=== PATIENT | female | born 1980 | race Caucasian/White ===

== ENCOUNTER 2021-12-05 16:42 | Inpatient (IN) | payer OTHER ==
--- NOTE | 2021-12-05 17:40 | CT ---
EXAMINATION TYPE: CT brain wo con CT DLP: 1084.4 mGycm, Automated exposure control for dose reduction was used. DATE OF EXAM: 12/05/2021 5:13 PM COMPARISON: None. CLINICAL INDICATION:Female, 41 years old with history of Headache, eye doctor sent pt over for Vision issues and headache TECHNIQUE: Brain: Multiple axial CT images of the brain were obtained without IV contrast. FINDINGS: Brain: Extra-axial spaces: No abnormal extra-axial fluid collections. Ventricular system: Within normal limits Cerebral parenchyma: No acute intraparenchymal hemorrhage or mass effect. The florian-white junction is well differentiated. Cerebellum: Unremarkable. Mass effect: No evidence of midline shift. Intracranial vasculature: unremarkable Soft tissues: Normal. Calvarium/osseous structures: No depressed skull fracture. Paranasal sinuses and mastoid air cells: Mild scattered paranasal sinus disease. Visualized orbits: Orbital contents are intact. Extraconal and intraconal fat is within normal limits . IMPRESSION: 1. No acute intracranial process. 2. The orbits and globes appear within normal limits.
--- NOTE | 2021-12-05 21:30 | ED ---
Recheck HPI - General Chief Complaint: Recheck/Abnormal Lab/Rx Stated Complaint: High BP Time Seen by Provider: 12/05/21 21:23 Source: patient, RN notes reviewed, old records reviewed Mode of arrival: ambulatory Limitations: no limitations - History of Present Illness Initial Comments: This is a 41-year-old female to the ER for evaluation. Patient Dese for evaluation regards to severely elevated blood pressure. Concern for papillary edema. Patient is having blurry vision. No headaches. Patient has had elevated blood pressure in the past about 4 years ago was on medications but did stop taking medication. She denies any headache chest pain shortness of breath or abdominal pain. Currently she has had shortness of breath recently especially with exertion otherwise no complaints. Patient feels well no drug or alcohol abuse. MD Complaint: abnormal lab (Severely elevated blood pressure) -: unknown Returns Today for: other (Patient has had elevated blood pressure the past and medication) Symptoms Since Prior Visit: no new symptoms (Patient was having blurry vision which caused her to go to the [place]) Context: planned re-check Associated Symptoms: none Treatments Prior to Arrival: other medications - Related Data Home Medications Medication Instructions Recorded Confirmed No Known Home Medications 12/05/21 12/05/21 Allergies Allergy/AdvReac Type Severity Reaction Status Date / Time No Known Allergies Allergy Verified 12/05/21 21:31 Review of Systems ROS Statement: Those systems with pertinent positive or pertinent negative responses have been documented in the HPI. ROS Other: All systems not noted in ROS Statement are negative. Past Medical History Past Medical History: No Reported History History of Any Multi-Drug Resistant Organisms: None Reported Past Surgical History: Section, Uterine Ablation Additional Past Surgical History / Comment(s): lymph node removed Past Psychological History: No Psychological Hx Reported Smoking Status: Never smoker Past Alcohol Use History: None Reported Past Drug Use History: Unable to Obtain General Exam Limitations: no limitations General appearance: alert, in no apparent distress, anxious Head exam: Present: atraumatic, normocephalic, normal inspection Eye exam: Present: normal appearance, PERRL, EOMI. Absent: scleral icterus, conjunctival injection, periorbital swelling ENT exam: Present: normal exam, mucous membranes moist Neck exam: Present: normal inspection. Absent: tenderness, meningismus, lymphadenopathy Respiratory exam: Present: normal lung sounds bilaterally. Absent: respiratory distress, wheezes, rales, rhonchi, stridor Cardiovascular Exam: Present: normal rhythm, tachycardia, normal heart sounds. Absent: systolic murmur, diastolic murmur, rubs, gallop, clicks GI/Abdominal exam: Present: soft, normal bowel sounds. Absent: distended, tenderness, guarding, rebound, rigid Extremities exam: Present: normal inspection, full ROM, normal capillary refill. Absent: tenderness, pedal edema, joint swelling, calf tenderness Back exam: Present: normal inspection Neurological exam: Present: alert, oriented X3, CN II-XII intact Psychiatric exam: Present: normal affect, normal mood Skin exam: Present: warm, dry, intact, normal color. Absent: rash Course Vital Signs 12/05/21 12/05/21 12/05/21 16:52 21:10 22:06 Temperature 97.8 F Pulse Rate 116 H 107 H 85 Respiratory 20 18 18 Rate Blood Pressure 231/166 207/154 205/132 O2 Sat by Pulse 99 97 97 Oximetry 12/05/21 22:57 Temperature Pulse Rate 84 Respiratory 18 Rate Blood Pressure 186/119 O2 Sat by Pulse Oximetry - Reevaluation(s) Reevaluation #1: 12/05/21 22:08 Medical records reviewed Reevaluation #2: 12/05/21 23:03 Patient's blood pressure is mildly improving, slowly Reevaluation #3: 12/05/21 23:04 Patient informed results and questions answered - Consultations Consultation #1: spoke w [facility] who agree to admit this patient Medical Decision Making - Medical Decision Making 41 female found to have severely elevated blood pressure palpable edema, hypertensive emergency mild CHF. Patient will be admitted for cardiology evaluation management blood pressure control - Lab Data Result diagrams: 12/05/21 21:43 12/05/21 21:43 Lab Results 12/05/21 12/05/21 12/05/21 Range/Units 21:43 21:43 21:43 WBC 13.5 H (3.8-10.6) k/uL RBC 4.40 (3.80-5.40) m/uL Hgb 13.1 (11.4-16.0) gm/dL Hct 40.2 (34.0-46.0) % MCV 91.3 (80.0-100.0) fL MCH 29.7 (25.0-35.0) pg MCHC 32.5 (31.0-37.0) g/dL RDW 14.4 (11.5-15.5) % Plt Count 367 (150-450) k/uL MPV 8.7 Neutrophils % 72 % Lymphocytes % 23 % Monocytes % 3 % Eosinophils % 1 % Basophils % 1 % Neutrophils # 9.7 H (1.3-7.7) k/uL Lymphocytes # 3.1 (1.0-4.8) k/uL Monocytes # 0.4 (0-1.0) k/uL Eosinophils # 0.1 (0-0.7) k/uL Basophils # 0.1 (0-0.2) k/uL PT 10.3 (9.0-12.0) sec INR 0.9 (<1.2) APTT 23.6 (22.0-30.0) sec Sodium 136 L (137-145) mmol/L Potassium 3.9 (3.5-5.1) mmol/L Chloride 105 (98-107) mmol/L Carbon Dioxide 23 (22-30) mmol/L Anion Gap 8 mmol/L BUN 17 (7-17) mg/dL Creatinine 1.04 (0.52-1.04) mg/dL Est GFR (CKD-EPI)AfAm 79 (>60 ml/min/1.73 sqM) Est GFR (CKD-EPI)NonAf 68 (>60 ml/min/1.73 sqM) Glucose 116 H (74-99) mg/dL Calcium 8.8 (8.4-10.2) mg/dL Phosphorus 4.2 (2.5-4.5) mg/dL Magnesium 2.1 (1.6-2.3) mg/dL Total Bilirubin 0.7 (0.2-1.3) mg/dL AST 17 (14-36) U/L ALT 17 (4-34) U/L Alkaline Phosphatase 91 (38-126) U/L Troponin I (0.000-0.034) ng/mL NT-Pro-B Natriuret Pep pg/mL Total Protein 7.3 (6.3-8.2) g/dL Albumin 4.2 (3.5-5.0) g/dL 12/05/21 12/05/21 Range/Units 21:43 21:43 WBC (3.8-10.6) k/uL RBC (3.80-5.40) m/uL Hgb (11.4-16.0) gm/dL Hct (34.0-46.0) % MCV (80.0-100.0) fL MCH (25.0-35.0) pg MCHC (31.0-37.0) g/dL RDW (11.5-15.5) % Plt Count (150-450) k/uL MPV Neutrophils % % Lymphocytes % % Monocytes % % Eosinophils % % Basophils % % Neutrophils # (1.3-7.7) k/uL Lymphocytes # (1.0-4.8) k/uL Monocytes # (0-1.0) k/uL Eosinophils # (0-0.7) k/uL Basophils # (0-0.2) k/uL PT (9.0-12.0) sec INR (<1.2) APTT (22.0-30.0) sec Sodium (137-145) mmol/L Potassium (3.5-5.1) mmol/L Chloride (98-107) mmol/L Carbon Dioxide (22-30) mmol/L Anion Gap mmol/L BUN (7-17) mg/dL Creatinine (0.52-1.04) mg/dL Est GFR (CKD-EPI)AfAm (>60 ml/min/1.73 sqM) Est GFR (CKD-EPI)NonAf (>60 ml/min/1.73 sqM) Glucose (74-99) mg/dL Calcium (8.4-10.2) mg/dL Phosphorus (2.5-4.5) mg/dL Magnesium (1.6-2.3) mg/dL Total Bilirubin (0.2-1.3) mg/dL AST (14-36) U/L ALT (4-34) U/L Alkaline Phosphatase (38-126) U/L Troponin I 0.021 (0.000-0.034) ng/mL NT-Pro-B Natriuret Pep 4570 pg/mL Total Protein (6.3-8.2) g/dL Albumin (3.5-5.0) g/dL - EKG Data -: EKG Interpreted by Me (EKG sinus tachycardia 103 RI 128 QRS 95 QTC 428) - Radiology Data Radiology results: report reviewed (CT brain negative for acute disease chest x- ray positive for mild CHF), image reviewed Disposition Clinical Impression: Hypertensive emergency Disposition: ADMITTED IP TO THIS HOSP Condition: Serious Is patient prescribed a controlled substance at d/c from ED?: No Referrals: None,Stated [Primary Care Provider] - 1-2 days
[2021-12-05] MEDS ORDERED: LABETALOL 5 MG/ML VIAL MDV IVP STA ×2 (21:31→23:00)
[2021-12-05] MEDS ORDERED: SODIUM CHLORIDE 0.9% 1,000 ML IV STA (21:31)
[2021-12-05 22:15] LABS: Basophils # (A) 0.1 k/uL (0-0.2); Basophils % (A) 1 %; Eosinophils # (A) 0.1 k/uL (0-0.7); Eosinophils % (A) 1 %; HCT 40.2 % (34.0-46.0); HGB 13.1 gm/dL (11.4-16.0); Lymphocytes # (A) 3.1 k/uL (1.0-4.8); Lymphocytes % (A) 23 %; MCH 29.7 pg (25.0-35.0); MCHC 32.5 g/dL (31.0-37.0); MCV 91.3 fL (80.0-100.0); Mean Platelet Volume 8.7; Monocytes # (A) 0.4 k/uL (0-1.0); Monocytes % (A) 3 %; Neutrophils # (A) 9.7 k/uL (1.3-7.7); Neutrophils % (A) 72 %; Platelet Count 367 k/uL (150-450); RDW 14.4 % (11.5-15.5); WBC 13.5 k/uL (3.8-10.6)
[2021-12-05 22:20] LABS: INR 0.9 (<1.2); Partial Thromboplastin Time 23.6 sec (22.0-30.0); Prothrombin Time 10.3 sec (9.0-12.0)
[2021-12-05 22:43] LABS: Albumin 4.2 g/dL (3.5-5.0); Calcium 8.8 mg/dL (8.4-10.2); Magnesium 2.1 mg/dL (1.6-2.3); Phosphorus 4.2 mg/dL (2.5-4.5); Potassium 3.9 mmol/L (3.5-5.1); Total Bilirubin 0.7 mg/dL (0.2-1.3); Total Protein 7.3 g/dL (6.3-8.2)
[2021-12-05] MEDS ORDERED: NALOXONE 0.4 MG/ML 1 ML VIAL IV PRN (23:00)
[2021-12-05] MEDS ORDERED: LORazepam 2 MG/ML INJ IV PRN (23:00)
[2021-12-05] MEDS ORDERED: lisinopriL 10 MG TAB PO STA (23:02)
--- NOTE | 2021-12-05 23:10 | XR ---
EXAMINATION TYPE: XR chest 2V DATE OF EXAM: 12/05/2021 COMPARISON: NONE HISTORY: High blood pressure TECHNIQUE: 2 views FINDINGS: There is no heart failure nor confluent pneumonic infiltrate. Costophrenic angles are clear . There are no hilar masses. There are chest leads. Bony thorax is intact. Heart appears borderline e nlarged. IMPRESSION: No active cardiopulmonary disease. Borderline cardiomegaly.
[2021-12-05] MEDS: SODIUM CHLORIDE 0.9% 1,000 ML IV SCH (23:13)
[2021-12-06] MEDS ORDERED: hydrALAZINE HCL 20 MG/ML 1 ML VIAL IVP STA (01:24)
[2021-12-06] MEDS: ACETAMINOPHEN TAB 325 MG TAB PO PRN ×2 (03:46→17:34)
[2021-12-06 05:55] LABS: Basophils # (A) 0.1 k/uL (0-0.2); Basophils % (A) 1 %; Eosinophils % (A) 0 %; HCT 37.3 % (34.0-46.0); Lymphocytes # (A) 2.2 k/uL (1.0-4.8); Lymphocytes % (A) 17 %; MCH 29.6 pg (25.0-35.0); MCHC 32.3 g/dL (31.0-37.0); MCV 91.8 fL (80.0-100.0); Monocytes # (A) 0.4 k/uL (0-1.0); Monocytes % (A) 3 %; Neutrophils # (A) 10.3 k/uL (1.3-7.7); Neutrophils % (A) 78 %; Platelet Count 313 k/uL (150-450); RBC 4.06 m/uL (3.80-5.40); RDW 13.8 % (11.5-15.5); WBC 13.1 k/uL (3.8-10.6)
[2021-12-06 06:09] LABS: Albumin 3.4 g/dL (3.5-5.0); Calcium 8.5 mg/dL (8.4-10.2); Phosphorus 3.8 mg/dL (2.5-4.5); Potassium 3.9 mmol/L (3.5-5.1); Total Bilirubin 0.8 mg/dL (0.2-1.3); Total Protein 6.2 g/dL (6.3-8.2)
[2021-12-06] MEDS: lisinopriL 10 MG TAB PO SCH (08:06)
[2021-12-06] MEDS: METOPROLOL TARTRATE 50 MG TAB PO SCH ×2 (08:06→20:30)
[2021-12-06] MEDS: SODIUM CHLORIDE 0.9% 1,000 ML IV SCH ×2 (08:06→18:41)
[2021-12-06] MEDS ORDERED: RX INFO: IV CONTRAST WAS GIVEN 1 EACH MISC MISCELLANE PRN (11:11)
[2021-12-06] MEDS ORDERED: SODIUM CHLORIDE 0.9% 1,000 ML IV SCH (11:15)
--- NOTE | 2021-12-06 11:28 | P.CRDCN ---
History of Present Illness Consult date: 12/06/21 Chief complaint: Shortness of breath History of present illness: The patient is a pleasant 41-year-old female patient who did not see a physician in at least 3 years was diagnosed in the past with hypertension but unfortunately she stopped taking her medication. Beside that she does have mild obesity. She was referred to the emergency department by her supervisor parking lot. She had an appointment yesterday where her supervisor parking lot found out that her pressure was severely elevated and refer the patient to come to the hospital. Her blood pressure was more than 200 mmHg systolic. For the last week the patient has been experiencing increasing in the shortness of breath with exertion and she stated that she gained some weight and developed bilateral lower extremities edema. She reports no pain in the chest and no dizziness or lightheadedness or any feeling of heart racing or fluttering or presyncope or syncope. She had a full evaluation in the emergency department including a chest x-ray showed no acute abnormalities and EKG showing sinus rhythm with evidence of LVH and poor R-wave progression. Beside that her NT proBNP came in to be mildly elevated. When the patient was seen and evaluated she was in very mild heart failure with mild lower extremities edema more prominent on the left side than the right side but she has clear breathing sounds bilaterally and she has a regular rate and rhythm. Currently she is on lisinopril as well as metoprolol. She has not been taking any medication for high blood pressure at home. Beside that clearly the patient has not been watching her diet and she has not been exercising regularly. Past Medical History Past Medical History: No Reported History History of Any Multi-Drug Resistant Organisms: None Reported Past Surgical History: Section, Uterine Ablation Additional Past Surgical History / Comment(s): lymph node removed Past Psychological History: No Psychological Hx Reported Smoking Status: Never smoker Past Alcohol Use History: None Reported Past Drug Use History: Unable to Obtain Medications and Allergies Home Medications Medication Instructions Recorded Confirmed Type No Known Home Medications 12/05/21 12/05/21 History Allergies Allergy/AdvReac Type Severity Reaction Status Date / Time No Known Allergies Allergy Verified 12/05/21 21:31 Physical Exam Vitals: Vital Signs Temp Pulse Resp BP Pulse Ox 12/06/21 09:12 82 18 149/93 98 12/06/21 08:03 84 18 141/92 97 12/06/21 06:48 84 18 142/89 96 12/06/21 04:00 84 18 154/96 96 12/06/21 02:13 80 18 152/93 97 12/05/21 23:54 81 18 176/122 97 12/05/21 22:57 84 18 186/119 12/05/21 22:06 85 18 205/132 97 12/05/21 21:10 107 H 18 207/154 97 12/05/21 16:52 97.8 F 116 H 20 231/166 99 Intake and Output 12/05/21 12/06/21 12/06/21 22:59 06:59 14:59 Other: Weight 113.398 kg - Constitutional General appearance: no acute distress - Respiratory Respiratory: bilateral: diminished - Cardiovascular Rhythm: regular Heart sounds: normal: S1, S2 Results 12/06/21 04:56 12/06/21 04:56 Cardiac Enzymes 12/05/21 12/05/21 12/06/21 Range/Units 21:43 21:43 00:17 AST 17 (14-36) U/L Troponin I 0.021 0.016 (0.000-0.034) ng/mL 12/06/21 12/06/21 Range/Units 04:56 04:56 AST 14 (14-36) U/L Troponin I <0.012 (0.000-0.034) ng/mL Coagulation 12/05/21 Range/Units 21:43 PT 10.3 (9.0-12.0) sec APTT 23.6 (22.0-30.0) sec CBC 12/05/21 12/06/21 Range/Units 21:43 04:56 WBC 13.5 H 13.1 H (3.8-10.6) k/uL RBC 4.40 4.06 (3.80-5.40) m/uL Hgb 13.1 12.0 (11.4-16.0) gm/dL Hct 40.2 37.3 (34.0-46.0) % Plt Count 367 313 (150-450) k/uL Comprehensive Metabolic Panel 12/05/21 12/06/21 Range/Units 21:43 04:56 Sodium 136 L 137 (137-145) mmol/L Potassium 3.9 3.9 (3.5-5.1) mmol/L Chloride 105 107 (98-107) mmol/L Carbon Dioxide 23 21 L (22-30) mmol/L BUN 17 16 (7-17) mg/dL Creatinine 1.04 0.98 (0.52-1.04) mg/dL Glucose 116 H 109 H (74-99) mg/dL Calcium 8.8 8.5 (8.4-10.2) mg/dL AST 17 14 (14-36) U/L ALT 17 16 (4-34) U/L Alkaline Phosphatase 91 76 (38-126) U/L Total Protein 7.3 6.2 L (6.3-8.2) g/dL Albumin 4.2 3.4 L (3.5-5.0) g/dL Current Medications Generic Name Dose Route Start Last Admin Trade Name Freq PRN Reason Stop Dose Admin Acetaminophen 650 mg 12/05/21 23:00 12/06/21 03:46 Acetaminophen Tab 325 Mg Tab PO 650 mg Q6HR PRN Administration Mild Pain or Fever > 100.5 Sodium Chloride 1,000 mls @ 130 mls/hr 12/05/21 23:00 12/06/21 08:06 Saline 0.9% IV 130 mls/hr .[id number] ALLAN Administration Sodium Chloride 1,000 mls @ 75 mls/hr 12/06/21 11:15 Saline 0.9% IV 12/06/21 16:16 .[id number] ALLAN Lisinopril 10 mg 12/06/21 09:00 12/06/21 08:06 Lisinopril 10 Mg Tab PO 10 mg DAILY ALLAN Administration Lorazepam 0.5 mg 12/05/21 23:00 Lorazepam 2 Mg/Ml Inj IV Q6HR PRN Anxiety Metoprolol Tartrate 50 mg 12/06/21 09:00 12/06/21 08:06 Metoprolol Tartrate 50 Mg Tab PO 50 mg BID ALLAN Administration Miscellaneous Information 1 each 12/06/21 11:11 Rx Info: Iv Contrast Was Given 1 Each Misc MISCELLANE 12/08/21 11:11 DAILY PRN Per Protocol Morphine Sulfate 4 mg 12/05/21 23:00 Morphine Sulfate 4 Mg/Ml Syringe IV Q4HR PRN Severe Pain Naloxone HCl 0.2 mg 12/05/21 23:00 Naloxone 0.4 Mg/Ml 1 Ml Vial IV Q2M PRN Opioid Reversal Ondansetron HCl 4 mg 12/05/21 23:00 Ondansetron 4 Mg/2 Ml Vial IVP Q8HR PRN Nausea And Vomiting Intake and Output 12/05/21 12/06/21 12/06/21 22:59 06:59 14:59 Other: Weight 113.398 kg 12/06/21 04:56 12/06/21 04:56 Assessment and Plan Assessment: Assessment #1 hypertension emergency #2 mild heart failure of unknown etiology likely related to hypertension emergency #3 overweight #4 noncompliance Plan #1 continue the current medical regimen including the current dose of metoprolol as well as lisinopril #2 add diuretics and preferably thiazide diuretics with chlorthalidone #3 follow-up on the echocardiogram #4 the importance of low sodium diet and exercise was discussed with her #5 follow-up with the patient
[2021-12-06] MEDS: NITROGLYCERIN-D5W PMX 50 MG in DEXTROSE/WATER 1 250ML.BAG IV SCH (12:48)
[2021-12-06 14:00] LABS: Glucose,Whole Blood 127 mg/dL (75-99)
--- NOTE | 2021-12-06 14:59 | CA ---
Transthoracic Echo Report Name: Stefany Mahajan Age: 41 Gender: F : 1980 Exam Date: 12/06/2021 07:13 Exam Location: [facility] Ht (in): 66 Wt (lb): 250 Ordering Physician: James Elizalde DO Attending/Referring Phys: [id number], Tonio Day Care Director Salma Fenton, FOZIA Procedure CPT: Indications: chf Cardiac Hx: Family Hx , HTN Technical Quality: Fair Contrast 1: Total Dose (mL): Contrast 2: Total Dose (mL): MEASUREMENTS (Male / Female) Normal Values 2D ECHO LV Diastolic Diameter PLAX 4.1 cm 4.2 - 5.9 / 3.9 - 5.3 cm LV Systolic Diameter PLAX 3.6 cm IVS Diastolic Thickness 1.6 cm 0.6 - 1.0 / 0.6 - 0.9 cm LVPW Diastolic Thickness 1.5 cm 0.6 - 1.0 / 0.6 - 0.9 cm LV Relative Wall Thickness 0.8 RV Internal Dim ED PLAX 2.9 cm LA Systolic Diameter LX 3.6 cm 3.0 - 4.0 / 2.7 - 3.8 cm M-MODE Aortic Root Diameter MM 3.1 cm MV E Point Septal Separation 0.9 cm AV Cusp Separation MM 2.0 cm DOPPLER AV Peak Velocity 170.8 cm/s AV Peak Gradient 11.7 mmHg MV Area PHT 4.3 cm??? Mitral E Point Velocity 132.4 cm/s Mitral A Point Velocity 66.8 cm/s Mitral E to A Ratio 2.0 MV Deceleration Time 175.4 ms MV E' Velocity 8.0 cm/s Mitral E to MV E' Ratio 16.6 TR Peak Velocity 266.3 cm/s TR Peak Gradient 28.4 mmHg Right Ventricular Systolic Press 42.7 mmHg FINDINGS Left Ventricle Left ventricular ejection fraction is estimated at 60-65 %. Left ventricular cavity size normal moderate concentric left ventricular hypertrophy. Right Ventricle Mildly dilated right ventricle with a normal function. Mild pulmonary hypertension. Right Atrium Normal right atrial size. Left Atrium Mildly increased left atrial area. Mitral Valve Mitral annular calcification. Mild to moderate mitral regurgitation. Aortic Valve Focal thickening of the aortic valve cusps. Tricuspid Valve Mild to moderate tricuspid regurgitation. Pulmonic Valve Trace pulmonic regurgitation. Pericardium Normal pericardium. Aorta Normal size aortic root and proximal ascending aorta. CONCLUSIONS Normal left ventricular dimension and systolic function. Moderate concentric LVH. Mildly dilated right ventricle with a normal function. [id number] mitral regurgitation Mild pulmonary hypertension Mild to moderate tricuspid regurgitation Previewed by: Dr. Christian Bates MD (Electronically Signed) Final Date: 06 Dec 2021 14:58
--- NOTE | 2021-12-06 17:12 | P.HPIM ---
History of Present Illness H&P Date: 12/06/21 Chief Complaint: High pressure 41-year-old female patient who did not see a physician in at least 3 years was diagnosed in the past with hypertension but unfortunately she stopped taking her medication. Beside that she does have mild obesity. She was referred to the emergency department by her trace evidence technician. She had an appointment yesterday where her trace evidence technician found out that her pressure was severely elevated and refer the patient to come to the hospital. Her blood pressure was more than 200 mmHg systolic. For the last week the patient has been experiencing increasing in the shortness of breath with exertion and she stated that she gained some weight and developed bilateral lower extremities edema. She reports no pain in the chest and no dizziness or lightheadedness or any feeling of heart racing or fluttering or presyncope or syncope. Blood work completed in ED reveals WBC of 13.1, hemoglobin of 12 and platelet count of 313, sodium 137, potassium 3.9, BUN/creatinine of 16/0.98 and blood glucose of 109; troponin of less than 0.021; BNP of 4570 Review of Systems REVIEW OF SYSTEMS: CONSTITUTIONAL: No fever, no malaise, no fatigue. HEENT: No recent visual problems or hearing problems. Denied any sore throat. CARDIOVASCULAR: No chest pain, orthopnea, PND, no palpitations, no syncope. PULMONARY: No shortness of breath, no cough, no hemoptysis. GASTROINTESTINAL: No diarrhea, no nausea, no vomiting, no abdominal pain. NEUROLOGICAL: No headaches, no weakness, no numbness. HEMATOLOGICAL: Denies any bleeding or petechiae. GENITOURINARY: Denies any burning micturition, frequency, or urgency. MUSCULOSKELETAL/RHEUMATOLOGICAL: Denies any joint pain, swelling, or any muscle pain. ENDOCRINE: Denies any polyuria or polydipsia. The rest of the 14-point review of systems is negative. Past Medical History Past Medical History: No Reported History History of Any Multi-Drug Resistant Organisms: None Reported Past Surgical History: Section, Uterine Ablation Additional Past Surgical History / Comment(s): lymph node removed Past Psychological History: No Psychological Hx Reported Smoking Status: Never smoker Past Alcohol Use History: None Reported Past Drug Use History: Unable to Obtain - Past Family History Father Family Medical History: Hypertension Mother Additional Family Medical History / Comment(s): Heart failure. Medications and Allergies Home Medications Medication Instructions Recorded Confirmed Type No Known Home Medications 12/05/21 12/05/21 History Allergies Allergy/AdvReac Type Severity Reaction Status Date / Time No Known Allergies Allergy Verified 12/05/21 21:31 Physical Exam Vitals: Vital Signs Temp Pulse Resp BP Pulse Ox 12/06/21 09:12 82 18 149/93 98 12/06/21 08:03 84 18 141/92 97 12/06/21 06:48 84 18 142/89 96 12/06/21 04:00 84 18 154/96 96 12/06/21 02:13 80 18 152/93 97 12/05/21 23:54 81 18 176/122 97 12/05/21 22:57 84 18 186/119 12/05/21 22:06 85 18 205/132 97 12/05/21 21:10 107 H 18 207/154 97 12/05/21 16:52 97.8 F 116 H 20 231/166 99 Intake and Output 12/05/21 12/06/21 12/06/21 22:59 06:59 14:59 Other: Weight 113.398 kg PHYSICAL EXAMINATION: GENERAL: The patient is alert and oriented x3, not in any acute distress. Well developed, well nourished. HEENT: Pupils are round and equally reacting to light. EOMI. No scleral icterus. No conjunctival pallor. Normocephalic, atraumatic. No pharyngeal erythema. No thyromegaly. CARDIOVASCULAR: S1 and S2 present. No murmurs, rubs, or gallops. PULMONARY: Chest is clear to auscultation, no wheezing or crackles. ABDOMEN: Soft, nontender, nondistended, normoactive bowel sounds. No palpable organomegaly. MUSCULOSKELETAL: No joint swelling or deformity. EXTREMITIES: No cyanosis, clubbing, or pedal edema. NEUROLOGICAL: Gross neurological examination did not reveal any focal deficits. SKIN: No rashes. Results CBC & Chem 7: 12/06/21 04:56 12/06/21 04:56 Labs: Abnormal Lab Results - Last 24 Hours (Table) 12/05/21 12/05/21 12/06/21 Range/Units 21:43 21:43 04:56 WBC 13.5 H 13.1 H (3.8-10.6) k/uL Neutrophils # 9.7 H 10.3 H (1.3-7.7) k/uL Sodium 136 L (137-145) mmol/L Carbon Dioxide (22-30) mmol/L Glucose 116 H (74-99) mg/dL Total Protein (6.3-8.2) g/dL Albumin (3.5-5.0) g/dL /02/20 Range/Units 04:56 WBC (3.8-10.6) k/uL Neutrophils # (1.3-7.7) k/uL Sodium (137-145) mmol/L Carbon Dioxide 21 L (22-30) mmol/L Glucose 109 H (74-99) mg/dL Total Protein 6.2 L (6.3-8.2) g/dL Albumin 3.4 L (3.5-5.0) g/dL Assessment and Plan Assessment: 1. Hypertensive emergency - Patient has been admitted to ICU; has been placed on IV nitroglycerin infusion with plans to titrate for improved blood pressure control - Patient has been placed back on home antihypertensive therapy including metoprolol and lisinopril - Cardiology recommending to add thiazide diuretics with chlorthalidone 2. Mild CHF; likely related to hypertensive emergency - 2-D echo is ordered and pending; patient is to be placed on thiazide diuretics with chlorthalidone; continue with home dose of lisinopril; further recommendations after echocardiogram is completed 3. Leukocytosis; likely stress related; no signs of infection; we will monitor CBC and further recommendations accordingly 4. Overweight; counseling done on need for weight reduction DVT prophylaxis; SCDs CODE STATUS; full code
[2021-12-06] MEDS: MORPHINE SULFATE 4 MG/ML SYRINGE IV PRN (18:40)
[2021-12-06] MEDS: ONDANSETRON 4 MG/2 ML VIAL IVP PRN (18:40)
[2021-12-07] MEDS: SODIUM CHLORIDE 0.9% 1,000 ML IV SCH ×3 (00:15→13:54)
[2021-12-07] MEDS: ACETAMINOPHEN TAB 325 MG TAB PO PRN ×3 (04:10→13:36)
[2021-12-07] MEDS: MORPHINE SULFATE 4 MG/ML SYRINGE IV PRN ×4 (05:11→20:09)
[2021-12-07 06:55] LABS: Basophils # (A) 0.1 k/uL (0-0.2); Basophils % (A) 0 %; Eosinophils # (A) 0.1 k/uL (0-0.7); Eosinophils % (A) 1 %; HGB 11.6 gm/dL (11.4-16.0); Lymphocytes # (A) 1.5 k/uL (1.0-4.8); Lymphocytes % (A) 9 %; MCH 29.5 pg (25.0-35.0); MCHC 31.4 g/dL (31.0-37.0); MCV 93.9 fL (80.0-100.0); Monocytes # (A) 0.6 k/uL (0-1.0); Monocytes % (A) 4 %; Neutrophils # (A) 13.1 k/uL (1.3-7.7); Neutrophils % (A) 85 %; Platelet Count 284 k/uL (150-450); RBC 3.93 m/uL (3.80-5.40); RDW 13.9 % (11.5-15.5); WBC 15.5 k/uL (3.8-10.6)
[2021-12-07 07:04] LABS: Calcium 7.9 mg/dL (8.4-10.2); Potassium 4.1 mmol/L (3.5-5.1)
[2021-12-07] MEDS: CHLORTHALIDONE 25 MG TAB PO SCH ×2 (07:47→07:49)
[2021-12-07] MEDS: lisinopriL 10 MG TAB PO SCH (07:48)
[2021-12-07] MEDS: METOPROLOL TARTRATE 50 MG TAB PO SCH ×2 (07:49→20:09)
--- NOTE | 2021-12-07 07:52 | P.PN ---
Subjective Progress Note Date: 12/07/21 Principal diagnosis: hypertension emergency The patient is a 41-year-old female patient who was admitted to the hospital was hypertension emergency. She was referred from her leading firefighter to the emergency department with elevated blood pressure exceeding 200 mmHg systolic as sociated with lower extremities edema and increasing in the shortness of breath. She is known to have hypertension but she has not been taking any medication for the last several years and never seen a physician for the last several years. She was seen this morning. She is in the intensive care unit. Currently she is on nitro drip. On examination she continues to be hypervolemic with bilateral lower extremities swelling and also upper extremity swelling. No symptoms of chest pain or chest discomfort. Currently she is on nitro drip which I'm going to wean her down from it. Meanwhile I'm going to increase the dose of lisinopril and also start the patient on amlodipine in addition to the current medical regimen. She underwent an echo which revealed normal LV function was mild to moderate mitral and tricuspid regurgitation and evidence of hypertensive heart disease with at least moderate left ventricular hypertrophy. Objective - Vital Signs Vital signs: Vital Signs Temp 98.3 F 12/07/21 04:00 Pulse 76 12/07/21 07:00 Resp 21 12/07/21 07:00 BP 151/96 12/07/21 07:00 Pulse Ox 94 L 12/07/21 07:00 Intake & Output 12/06/21 12/07/21 12/07/21 18:59 06:59 18:59 Intake Total 474.716 2671.90 130 Output Total 200 300 Balance 399.222 7756.90 130 Weight 127.9 kg Intake: IV 465 1560 130 0.9 465 1560 130 Intake, IV Titration 7.425 141.90 Amount Nitroglycerin-D5w Pmx 50 7.425 141.90 mg In Dextrose/Water 1 250ml.bag @ 5 MCG/MIN 1.5 mls/hr IV .Q24H [facility] Rx#: [id number] Output: Urine 200 300 Other: Voiding Method Toilet Toilet # Voids 1 1 - Constitutional General appearance: Present: no acute distress - Respiratory Respiratory: bilateral: diminished - Cardiovascular Rhythm: regular Heart sounds: normal: S1, S2 - Labs CBC & Chem 7: 12/07/21 06:33 05/08/22 06:33 Labs: Abnormal Lab Results - Last 24 Hours (Table) 12/06/21 12/07/21 12/07/21 Range/Units 13:57 06:33 06:33 WBC 15.5 H (3.8-10.6) k/uL Neutrophils # 13.1 H (1.3-7.7) k/uL Chloride 112 H (98-107) mmol/L Carbon Dioxide 19 L (22-30) mmol/L Creatinine 1.06 H (0.52-1.04) mg/dL Glucose 122 H (74-99) mg/dL POC Glucose (mg/dL) 127 H (75-99) mg/dL Calcium 7.9 L (8.4-10.2) mg/dL Assessment and Plan Assessment: Assessment #1 hypertension emergency #2 mild heart failure of unknown etiology likely related to hypertension emergency #3 overweight #4 noncompliance Plan #1 increase the dose of lisinopril #2 add amlodipine to the current medical regimen #3 continue the current medical regimen including chlorthalidone #4 monitor the kidney function and electrolytes #5 the echo was reviewed and described above #6 the right wean the patient from Nitrol drip
[2021-12-07] MEDS ORDERED: lisinopriL 10 MG TAB PO ONE (09:00)
[2021-12-07] MEDS ORDERED: amLODIPine 5 MG TAB PO SCH (09:00)
--- NOTE | 2021-12-07 15:45 | P.PN ---
Subjective Progress Note Date: 12/07/21 Principal diagnosis: Hypertensive emergency Mild CHF 41-year-old female patient who did not see a physician in at least 3 years was diagnosed in the past with hypertension but unfortunately she stopped taking her medication. Beside that she does have mild obesity. She was referred to the emergency department by her traffic workforce representative. She had an appointment yesterday where her traffic workforce representative found out that her pressure was severely elevated and refer the patient to come to the hospital. Her blood pressure was more than 200 mmHg systolic. For the last week the patient has been experiencing increasing in the shortness of breath with exertion and she stated that she gained some weight and developed bilateral lower extremities edema. She reports no pain in the chest and no dizziness or lightheadedness or any feeling of heart racing or fluttering or presyncope or syncope. Blood work completed in ED reveals WBC of 13.1, hemoglobin of 12 and platelet count of 313, sodium 137, potassium 3.9, BUN/creatinine of 16/0.98 and blood glucose of 109; troponin of less than 0.021; BNP of 4570 12/07/2021 Patient is seen and evaluated in room at bedside sitting up in bedside chair; remains in ICU; remains on IV nitroglycerin infusion Patient has been evaluated by cardiology and is recommended to be weaned off nitroglycerin infusion; plan is to increase dose of lisinopril; amlodipine is added to current medical regimen Echocardiogram is completed and reveals normal LV function with mild to moderate mitral and tricuspid regurgitation and moderate LVH; continue the current medical regimen including chlorthalidone; monitor the kidney function and electrolytes Objective - Vital Signs Vital signs: Vital Signs Temp 98.1 F 12/07/21 08:00 Pulse 73 12/07/21 11:00 Resp 24 12/07/21 11:00 BP 140/93 12/07/21 11:00 Pulse Ox 95 12/07/21 11:00 Intake & Output 12/06/21 12/07/21 12/07/21 18:59 06:59 18:59 Intake Total 863.440 4107.90 1328.05 Output Total 200 300 250 Balance 101.840 7588.90 1078.05 Weight 127.9 kg Intake: IV 465 1560 780 0.9 465 1560 780 Intake, IV Titration 7.425 141.90 48.05 Amount Nitroglycerin-D5w Pmx 50 7.425 141.90 48.05 mg In Dextrose/Water 1 250ml.bag @ 5 MCG/MIN 1.5 mls/hr IV .Q24H [facility] Rx#: [id number] Oral 500 Output: Urine 200 300 250 Other: Voiding Method Toilet Toilet Toilet # Voids 1 1 - Labs CBC & Chem 7: 12/07/21 06:33 12/07/21 06:33 Labs: Abnormal Lab Results - Last 24 Hours (Table) 12/06/21 12/07/21 12/07/21 Range/Units 13:57 06:33 06:33 WBC 15.5 H (3.8-10.6) k/uL Neutrophils # 13.1 H (1.3-7.7) k/uL Chloride 112 H (98-107) mmol/L Carbon Dioxide 19 L (22-30) mmol/L Creatinine 1.06 H (0.52-1.04) mg/dL Glucose 122 H (74-99) mg/dL POC Glucose (mg/dL) 127 H (75-99) mg/dL Calcium 7.9 L (8.4-10.2) mg/dL Assessment and Plan Assessment: 1. Hypertensive emergency - Patient has been admitted to ICU; has been placed on IV nitroglycerin infusion with plans to titrate for improved blood pressure control - Patient has been placed back on home antihypertensive therapy including metoprolol and lisinopril - Cardiology recommending to add thiazide diuretics with chlorthalidone 2. Mild CHF; likely related to hypertensive emergency - 2-D echo is ordered and pending; patient is to be placed on thiazide diuretics with chlorthalidone; continue with home dose of lisinopril; further recommendations after echocardiogram is completed 3. Leukocytosis; likely stress related; no signs of infection; we will monitor CBC and further recommendations accordingly 4. Overweight; counseling done on need for weight reduction DVT prophylaxis; SCDs CODE STATUS; full code
[2021-12-07] MEDS: ONDANSETRON 4 MG/2 ML VIAL IVP PRN (16:00)
[2021-12-07] MEDS: NITROGLYCERIN-D5W PMX 50 MG in DEXTROSE/WATER 1 250ML.BAG IV SCH (20:05)
[2021-12-07] MEDS: SPIRONOLACTONE 25 MG TAB PO SCH (21:22)
[2021-12-07] MEDS: hydrALAZINE HCL 20 MG/ML 1 ML VIAL IVP PRN (21:23)
[2021-12-08] MEDS: hydrALAZINE HCL 20 MG/ML 1 ML VIAL IVP PRN ×2 (05:40→15:44)
[2021-12-08] MEDS: ACETAMINOPHEN TAB 325 MG TAB PO PRN ×2 (06:38→12:14)
--- NOTE | 2021-12-08 07:06 | P.PN ---
Subjective Progress Note Date: 12/08/21 PROGRESS NOTE The patient is a 41-year-old female with prior diagnosis of hypertension who presented with uncontrolled hypertension. She was not taking any medication on presentation. She had no evidence of organ acute damage. She is complaining of generalized achiness but no chest discomfort or significant dyspnea. She denies any dizziness or palpitations. She is in sinus mechanism. She is off the IV nitroglycerin. She had a headache that resolved. She has no nausea or vomiting. She continues to be on Norvasc 5 mg daily, chlorthalidone 25 mg daily, lisinopril 20 mg daily, Toprol-XL tartrate 50 mg twice a day. She is on hydralazine on a when necessary basis. PHYSICAL EXAMINATION: Blood pressure 150/80 heart rate 90 LUNGS: [Clear to auscultation] HEART: [Regular rate and rhythm, S1, S2. No S3. Systolic ejection murmur, 2/6. Plus S4] ABDOMEN: [Soft, nontender, no organomegaly] EXTREMETIES: [+1 edema] LAB: Potassium 4.1, BUN 16, creatinine 1.06. Echocardiogram showed a normal systolic function was mild to moderate mitral and tricuspid regurgitation IMPRESSION: 1. Uncontrolled hypertension, not treated in the past. 2. Peripheral edema, improving 3. Noncompliance PLAN: 1. Increase activity leve 2. Transfer to telemetry floor 3. Increase amlodipine and lisinopril 4. Follow renal functions 5. If stable probable discharge in 24-48 hours. Objective - Vital Signs Vital signs: Vital Signs Temp 97.8 F 12/08/21 04:00 Pulse 96 12/08/21 06:00 Resp 24 12/08/21 06:00 BP 177/106 12/08/21 06:00 Pulse Ox 97 12/08/21 06:00 Intake & Output 12/07/21 12/08/21 12/08/21 18:59 06:59 18:59 Intake Total 2285.525 359.700 Output Total 700 2300 Balance 1585.525 -1940.300 Weight 127.5 kg Intake: IV 960 80 0.9 960 80 Intake, IV Titration 75.525 79.700 Amount Nitroglycerin-D5w Pmx 50 75.525 79.700 mg In Dextrose/Water 1 250ml.bag @ 5 MCG/MIN 1.5 mls/hr IV .Q24H [facility] Rx#: [id number] Oral 1250 200 Output: Urine 700 2300 Other: Voiding Method Toilet Toilet - Labs CBC & Chem 7: 12/07/21 06:33 12/07/21 06:33 Labs: Abnormal Lab Results - Last 24 Hours (Table) 12/07/21 Range/Units 06:33 Chloride 112 H (98-107) mmol/L Carbon Dioxide 19 L (22-30) mmol/L Creatinine 1.06 H (0.52-1.04) mg/dL Glucose 122 H (74-99) mg/dL Calcium 7.9 L (8.4-10.2) mg/dL
[2021-12-08] MEDS ORDERED: lisinopriL 20 MG TAB PO SCH (09:00)
[2021-12-08] MEDS: lisinopriL 20 MG TAB PO SCH ×2 (09:13→20:25)
[2021-12-08] MEDS: SPIRONOLACTONE 25 MG TAB PO SCH (09:13)
[2021-12-08] MEDS: METOPROLOL TARTRATE 50 MG TAB PO SCH ×2 (09:13→20:24)
[2021-12-08] MEDS: amLODIPine 5 MG TAB PO SCH ×2 (09:13→20:25)
--- NOTE | 2021-12-08 16:15 | P.PN ---
Subjective From records 41-year-old female patient who did not see a physician in at least 3 years was diagnosed in the past with hypertension but unfortunately she stopped taking her medication. Beside that she does have mild obesity. She was referred to the emergency department by her truck spotter. She had an appointment yesterday where her truck spotter found out that her pressure was severely elevated and refer the patient to come to the hospital. Her blood pressure was more than 200 mmHg systolic. For the last week the patient has been experiencing increasing in the shortness of breath with exertion and she stated that she gained some we ight and developed bilateral lower extremities edema. She reports no pain in the chest and no dizziness or lightheadedness or any feeling of heart racing or fluttering or presyncope or syncope. Blood work completed in ED reveals WBC of 13.1, hemoglobin of 12 and platelet count of 313, sodium 137, potassium 3.9, BUN/creatinine of 16/0.98 and blood glucose of 109; troponin of less than 0.021; BNP of 4570 12/07/2021 Patient is seen and evaluated in room at bedside sitting up in bedside chair; remains in ICU; remains on IV nitroglycerin infusion Patient has been evaluated by cardiology and is recommended to be weaned off nitroglycerin infusion; plan is to increase dose of lisinopril; amlodipine is added to current medical regimen Echocardiogram is completed and reveals normal LV function with mild to moderate mitral and tricuspid regurgitation and moderate LVH; continue the current medical regimen including chlorthalidone; monitor the kidney function and electrolytes Subjective 12/08/2021, resume the care of the patient today Patient is seen and examined today in the ICU. She is a pleasant 41 years old female who was sent from her PCP office for uncontrolled blood pressure. She is currently on several blood pressure medication and increase the dose of Norvasc 5 mg twice a day and lisinopril 20 mg twice a day increased today. And continued with the same medication of chlorthalidone 25 mg, metoprolol 50 mg and Aldactone 25 mg. Cardiology following the case closely. TSH normal. EF 60- 65%. Chest x-rays negative for acute process. WBC 15.5, creatinine 1.0. Patient can be transferred out of the ICU was cleared by cardiology Objective - Vital Signs Vital signs: Vital Signs Temp 98.0 F 12/08/21 08:00 Pulse 85 12/08/21 12:30 Resp 15 05/09/22 12:30 BP 162/106 12/08/21 12:00 Pulse Ox 96 12/08/21 12:30 Intake & Output 12/07/21 12/08/21 12/08/21 18:59 06:59 18:59 Intake Total 2285.525 359.700 500 Output Total 700 2300 1150 Balance 1585.525 -1940.300 -650 Weight 127.5 kg Intake: IV 960 80 0.9 960 80 Intake, IV Titration 75.525 79.700 Amount Nitroglycerin-D5w Pmx 50 75.525 79.700 mg In Dextrose/Water 1 250ml.bag @ 5 MCG/MIN 1.5 mls/hr IV .Q24H [facility] Rx#: [id number] Oral 1250 200 500 Output: Urine 700 2300 1150 Other: Voiding Method Toilet Toilet Toilet - Exam - GENERAL: The patient is alert and oriented x3, not in any acute distress. Morbidly obese HEENT: Pupils are round and equally reacting to light. EOMI. No scleral icterus. No conjunctival pallor. Normocephalic, atraumatic. No pharyngeal erythema. No thyromegaly. CARDIOVASCULAR: S1 and S2 present. No murmurs, rubs, or gallops. PULMONARY: Chest is clear to auscultation, no wheezing or crackles. ABDOMEN: Soft, nontender, nondistended, normoactive bowel sounds. No palpable organomegaly. MUSCULOSKELETAL: No joint swelling or deformity. EXTREMITIES: No cyanosis, clubbing, or pedal edema. NEUROLOGICAL: Gross neurological examination did not reveal any focal deficits. SKIN: No rashes. no petechiae. - Labs CBC & Chem 7: 12/07/21 06:33 12/07/21 06:33 Assessment and Plan Assessment: Hypertensive urgency, present on admission. Mild to moderate tricuspid regurgitation Leukocytosis, could be reactive. No source of infection. Probably mild degree of chronic kidney injury, possible chronic kidney disease stage II secondary to hypertensive nephropathy. Morbid obesity with BMI 45.4. Plan: This is a pleasant 61 years old female presents with uncontrolled hypertension and other medical problems. Continue with blood pressure medication, Norvasc, chlorthalidone, lisinopril, metoprolol and Aldactone. Cardiology team on the case. Monitor blood pressure closely. Preoperative creatinine and blood cells. Labs and medication were reviewed.. Continue same treatment. Continue with symptomatic treatment. Resume home medication. Monitor lytes and vitals. DVT and GI prophylaxis. Further recommendationsas per clinical course of the patient DVT prophylaxis: Subcutaneous heparin GI Prophylaxis: Pepcid Prognosis is guarded
[2021-12-08 16:27] LABS: Basophils # (A) 0.1 k/uL (0-0.2); Basophils % (A) 0 %; Eosinophils # (A) 0.3 k/uL (0-0.7); Eosinophils % (A) 2 %; HCT 42.4 % (34.0-46.0); HGB 13.7 gm/dL (11.4-16.0); Lymphocytes # (A) 2.6 k/uL (1.0-4.8); Lymphocytes % (A) 14 %; MCH 29.8 pg (25.0-35.0); MCHC 32.3 g/dL (31.0-37.0); MCV 92.5 fL (80.0-100.0); Monocytes # (A) 0.6 k/uL (0-1.0); Monocytes % (A) 3 %; Neutrophils # (A) 14.9 k/uL (1.3-7.7); Neutrophils % (A) 80 %; Platelet Count 420 k/uL (150-450); RBC 4.58 m/uL (3.80-5.40); RDW 14.5 % (11.5-15.5); WBC 18.7 k/uL (3.8-10.6)
[2021-12-08 16:37] LABS: African American GFR (CKD) >90 (>60 ml/min/1.73 sqM); Anion Gap 10 mmol/L; Blood Urea Nitrogen 12 mg/dL (7-17); Calcium 9.1 mg/dL (8.4-10.2); Carbon Dioxide 23 mmol/L (22-30); Chloride 106 mmol/L (98-107); Glucose 112 mg/dL (74-99); Non-African American GFR(CKD) 81 (>60 ml/min/1.73 sqM); Potassium 4.2 mmol/L (3.5-5.1); Sodium 139 mmol/L (137-145)
[2021-12-08 16:57] LABS: HCG,Qualitative Serum Not Detected
[2021-12-08 19:58] LABS: Appearance,Urine Clear (Clear); Bilirubin,Urine Negative (Negative); Blood,Urine Negative (Negative); Color,Urine Light Yellow; Glucose,Urine (UA) Negative (Negative); Ketones,Urine 1+ (Negative); Leukocyte Esterase,Urine Negative (Negative); Nitrite,Urine Negative (Negative); Protein,Urine Negative (Negative); Specific Gravity,Urine 1.009 (1.001-1.035); Urobilinogen,Urine <2.0 mg/dL (<2.0)
[2021-12-08] MEDS: HEPARIN SODIUM,PORCINE/PF 5,000 UNIT/0.5 ML SYRINGE SQ SCH (20:25)
[2021-12-08] MEDS: FAMOTIDINE 20 MG/2 ML VIAL IV SCH (20:25)
[2021-12-09] MEDS: hydrALAZINE HCL 20 MG/ML 1 ML VIAL IVP PRN (06:31)
[2021-12-09] MEDS: HEPARIN SODIUM,PORCINE/PF 5,000 UNIT/0.5 ML SYRINGE SQ SCH ×2 (08:37→20:07)
[2021-12-09] MEDS: CHLORTHALIDONE 25 MG TAB PO SCH (08:37)
[2021-12-09] MEDS: lisinopriL 20 MG TAB PO SCH ×2 (08:37→20:07)
[2021-12-09] MEDS: FAMOTIDINE 20 MG/2 ML VIAL IV SCH (08:37)
[2021-12-09] MEDS: SPIRONOLACTONE 25 MG TAB PO SCH (08:37)
[2021-12-09] MEDS: amLODIPine 5 MG TAB PO SCH ×2 (08:37→20:07)
[2021-12-09 08:46] VITALS: RESP 18
[2021-12-09 08:55] LABS: Calcium 8.8 mg/dL (8.4-10.2); Potassium 3.8 mmol/L (3.5-5.1)
--- NOTE | 2021-12-09 09:05 | P.PN ---
Subjective Progress Note Date: 12/09/21 PROGRESS NOTE The patient is a 41-year-old female with prior diagnosis of hypertension who presented with uncontrolled hypertension. She was not taking any medication on presentation. She had no evidence of organ acute damage. She is complaining of generalized achiness but no chest discomfort or significant dyspnea. She denies any dizziness or palpitations. She is in sinus mechanism. She is off the IV nitroglycerin. She had a headache that resolved. She has no nausea or vomiting. She continues to be on Norvasc 5 mg daily, chlorthalidone 25 mg daily, lisinopril 20 mg daily, Toprol-XL tartrate 50 mg twice a day. She is on hydralazine on a when necessary basis. December 09: The patient is feeling better today but she is anxious to go home, she denies any chest discomfort, dizziness or palpitations. She denies any nausea or vomiting. She continues to be in sinus mechanism. She continues to be on amlodipine 5 mg twice a day, metoprolol 50 mg twice a day, chlorthalidone, Zestril 20 mg twice a day and spironolactone 25 mg daily. Her blood pressure remains elevated. PHYSICAL EXAMINATION: Blood pressure running in the 150-180/90-100 with a heart rate in the 90s LUNGS: Clear to auscultation HEART: Regular rate and rhythm, S1, S2. No S3. Systolic ejection murmur, 2/6. Plus S4 ABDOMEN: Soft, nontender, no organomegaly EXTREMETIES: Trace edema LAB: Potassium 3.8, BUN 11, creatinine 0.98 IMPRESSION: 1. Uncontrolled hypertension, not treated in the past, under better control at this time. 2. Peripheral edema, improving 3. Noncompliance PLAN: 1. Increase activity leve 2. Change to Coreg 3. Add hydralazine 25 mg twice a day 4. Increase physical activity 5. If stable and blood pressure under better control either discharged home this afternoon or tomorrow. Objective - Vital Signs Vital signs: Vital Signs Temp 97.9 F 12/09/21 04:00 Pulse 104 H 12/09/21 08:00 Resp 18 12/09/21 08:00 BP 181/101 12/09/21 08:00 Pulse Ox 98 12/09/21 08:00 Intake & Output 12/08/21 12/09/21 12/09/21 18:59 06:59 18:59 Intake Total 500 120 Output Total 1150 Balance -650 120 Intake: Oral 500 120 Output: Urine 1150 Other: Voiding Method Toilet Toilet # Voids 3 1 0 - Labs CBC & Chem 7: 12/08/21 16:10 12/09/21 07:54 Labs: Abnormal Lab Results - Last 24 Hours (Table) 12/08/21 12/08/21 12/08/21 Range/Units 16:10 16:10 18:30 WBC 18.7 H (3.8-10.6) k/uL Neutrophils # 14.9 H (1.3-7.7) k/uL Carbon Dioxide (22-30) mmol/L Glucose 112 H (74-99) mg/dL Urine Ketones 1+ H (Negative) 12/09/21 Range/Units 07:54 WBC (3.8-10.6) k/uL Neutrophils # (1.3-7.7) k/uL Carbon Dioxide 21 L (22-30) mmol/L Glucose 131 H (74-99) mg/dL Urine Ketones (Negative)
[2021-12-09] MEDS: hydrALAZINE HCL 25 MG TAB PO SCH ×2 (09:07→20:07)
[2021-12-09] MEDS: carvediloL 12.5 MG TAB PO SCH ×2 (09:07→18:28)
[2021-12-09 09:28] LABS: Basophils # (A) 0.1 k/uL (0-0.2); Basophils % (A) 0 %; Eosinophils # (A) 0.4 k/uL (0-0.7); Eosinophils % (A) 2 %; HCT 42.3 % (34.0-46.0); HGB 12.9 gm/dL (11.4-16.0); Lymphocytes # (A) 3.3 k/uL (1.0-4.8); Lymphocytes % (A) 22 %; MCH 28.9 pg (25.0-35.0); MCHC 30.6 g/dL (31.0-37.0); MCV 94.5 fL (80.0-100.0); Mean Platelet Volume 9.8; Monocytes # (A) 0.8 k/uL (0-1.0); Monocytes % (A) 5 %; Neutrophils # (A) 10.5 k/uL (1.3-7.7); Neutrophils % (A) 69 %; Platelet Count 378 k/uL (150-450); RBC 4.47 m/uL (3.80-5.40); RDW 14.1 % (11.5-15.5); WBC 15.1 k/uL (3.8-10.6)
[2021-12-09 09:43] LABS: C Reactive Protein 2.7 mg/dL (<1.0)
--- NOTE | 2021-12-09 16:29 | P.PN ---
Subjective From records 41-year-old female patient who did not see a physician in at least 3 years was diagnosed in the past with hypertension but unfortunately she stopped taking her medication. Beside that she does have mild obesity. She was referred to the emergency department by her motor equipment commanding officer. She had an appointment yesterday where her motor equipment commanding officer found out that her pressure was severely elevated and refer the patient to come to the hospital. Her blood pressure was more than 200 mmHg systolic. For the last week the patient has been experiencing increasing in the shortness of breath with exertion and she stated that she gained some we ight and developed bilateral lower extremities edema. She reports no pain in the chest and no dizziness or lightheadedness or any feeling of heart racing or fluttering or presyncope or syncope. Blood work completed in ED reveals WBC of 13.1, hemoglobin of 12 and platelet count of 313, sodium 137, potassium 3.9, BUN/creatinine of 16/0.98 and blood glucose of 109; troponin of less than 0.021; BNP of 4570 12/07/2021 Patient is seen and evaluated in room at bedside sitting up in bedside chair; remains in ICU; remains on IV nitroglycerin infusion Patient has been evaluated by cardiology and is recommended to be weaned off nitroglycerin infusion; plan is to increase dose of lisinopril; amlodipine is added to current medical regimen Echocardiogram is completed and reveals normal LV function with mild to moderate mitral and tricuspid regurgitation and moderate LVH; continue the current medical regimen including chlorthalidone; monitor the kidney function and electrolytes Subjective 12/08/2021, resume the care of the patient today Patient is seen and examined today in the ICU. She is a pleasant 41 years old female who was sent from her PCP office for uncontrolled blood pressure. She is currently on several blood pressure medication and increase the dose of Norvasc 5 mg twice a day and lisinopril 20 mg twice a day increased today. And continued with the same medication of chlorthalidone 25 mg, metoprolol 50 mg and Aldactone 25 mg. Cardiology following the case closely. TSH normal. EF 60- 65%. Chest x-rays negative for acute process. WBC 15.5, creatinine 1.0. Patient can be transferred out of the ICU was cleared by cardiology 12/09/2021. Patient today clinically is significantly improved. The morning her blood pressure was still uncontrolled about 173/109, she denies any other symptoms. However she still has mild blurred vision although it is improved. She states she does not have PCP and she was following up with her motor equipment commanding officer Dr. Jaelyn curry for blurred vision without her that her blurry vision is due to uncontrolled high blood pressure and referred her to the hospital. She supposed to follow up with him in 2 weeks and she already has his contact information. Patient states that her vision the problem is much better today. Patient with no fever. No respiratory symptoms, no chest pain or diarrhea or vomiting. No urinary symptoms like dysuria or urgency or change in frequency, no rash or diarrhea. She tolerates diet well. WBC yesterday went up to 18.7 but today he is back to 15.5, patient with no evidence of infections upper antibiotic as prescribed for now. However we sent for procalcitonin which is pending now. I called the laps and the result as an back it. Her creatinine is improving 0.9. Urine analysis is negative with no evidence of infection, it has only 1+ ketones. Cortisol is 20. ACTH: Pending. Sterilizer Operator Carlton blood pressure medication. After roundsstated that patient on hospice wants to be discharged, and 4 patient she is not medically stable yet and labs are still pending. Objective - Vital Signs Vital signs: Vital Signs Temp 97.5 F L 12/09/21 11:58 Pulse 80 12/09/21 11:58 Resp 18 12/09/21 11:58 BP 127/77 12/09/21 11:58 Pulse Ox 98 12/09/21 11:58 Intake & Output 12/08/21 12/09/21 12/09/21 18:59 06:59 18:59 Intake Total 500 120 Output Total 1150 Balance -650 120 Intake: Oral 500 120 Output: Urine 1150 Other: Voiding Method Toilet Toilet # Voids 3 1 2 # Bowel Movements 0 - Exam - GENERAL: The patient is alert and oriented x3, not in any acute distress. Morbidly obese HEENT: Pupils are round and equally reacting to light. EOMI. No scleral icterus. No conjunctival pallor. Normocephalic, atraumatic. No pharyngeal erythema. No thyromegaly. CARDIOVASCULAR: S1 and S2 present. No murmurs, rubs, or gallops. PULMONARY: Chest is clear to auscultation, no wheezing or crackles. ABDOMEN: Soft, nontender, nondistended, normoactive bowel sounds. No palpable organomegaly. MUSCULOSKELETAL: No joint swelling or deformity. EXTREMITIES: No cyanosis, clubbing, or pedal edema. NEUROLOGICAL: Gross neurological examination did not reveal any focal deficits. SKIN: No rashes. no petechiae. - Labs CBC & Chem 7: 12/09/21 07:59 12/09/21 07:54 Labs: Abnormal Lab Results - Last 24 Hours (Table) 12/08/21 12/08/21 12/08/21 Range/Units 16:10 16:10 18:30 WBC 18.7 H (3.8-10.6) k/uL MCHC (31.0-37.0) g/dL Neutrophils # 14.9 H (1.3-7.7) k/uL Carbon Dioxide (22-30) mmol/L Glucose 112 H (74-99) mg/dL C-Reactive Protein (<1.0) mg/dL Urine Ketones 1+ H (Negative) 12/09/21 12/09/21 12/09/21 Range/Units 07:54 07:54 07:59 WBC 15.1 H (3.8-10.6) k/uL MCHC 30.6 L (31.0-37.0) g/dL Neutrophils # 10.5 H (1.3-7.7) k/uL Carbon Dioxide 21 L (22-30) mmol/L Glucose 131 H (74-99) mg/dL C-Reactive Protein 2.7 H (<1.0) mg/dL Urine Ketones (Negative) Assessment and Plan Assessment: Hypertensive urgency, present on admission. Improved Leukocytosis, could be reactive. No source of infection. Mild to moderate tricuspid regurgitation Probably mild degree of chronic kidney injury, possible chronic kidney disease stage II secondary to hypertensive nephropathy. Morbid obesity with BMI 45.4. Plan: This is a pleasant 61 years old female presents with uncontrolled hypertension and other medical problems. Continue with blood pressure medication, Norvasc, chlorthalidone, lisinopril, metoprolol and Aldactone. Cardiology team on the case. Monitor blood pressure closely. Keep monitoring high WBC count, this fluctuation now. No evidence of infection, no fever. Patient no signs of infection. Follow-up ACTH. Follow-up pro-calcitonin. We will keep monitoring closely Labs and medication were reviewed.. Continue same treatment. Continue with symptomatic treatment. Resume home medication. Monitor lytes and vitals. DVT and GI prophylaxis. Further recommendations as per clinical course of the patient DVT prophylaxis: Subcutaneous heparin GI Prophylaxis: Pepcid Prognosis is guarded
[2021-12-09 17:03] LABS: Procalcitonin 0.06 ng/mL (0.02-0.09)
[2021-12-09] MEDS: FAMOTIDINE 20 MG TAB PO SCH (20:07)
[2021-12-10 05:05] VITALS: PULSE 82; TEMP 98.4
[2021-12-10] MEDS: carvediloL 12.5 MG TAB PO SCH (06:51)
[2021-12-10 07:24] LABS: Basophils # (A) 0.1 k/uL (0-0.2); Basophils % (A) 1 %; Eosinophils # (A) 0.4 k/uL (0-0.7); Eosinophils % (A) 4 %; HCT 42.3 % (34.0-46.0); Lymphocytes # (A) 3.1 k/uL (1.0-4.8); Lymphocytes % (A) 25 %; MCH 29.2 pg (25.0-35.0); MCHC 30.7 g/dL (31.0-37.0); MCV 95.2 fL (80.0-100.0); Monocytes # (A) 0.6 k/uL (0-1.0); Monocytes % (A) 4 %; Neutrophils # (A) 8.1 k/uL (1.3-7.7); Neutrophils % (A) 65 %; Platelet Count 402 k/uL (150-450); RBC 4.44 m/uL (3.80-5.40); RDW 13.9 % (11.5-15.5); WBC 12.5 k/uL (3.8-10.6)
[2021-12-10 07:37] LABS: ACTH 8.25 pg/mL (0.00-45.99)
[2021-12-10 07:45] LABS: Calcium 8.9 mg/dL (8.4-10.2); Potassium 3.7 mmol/L (3.5-5.1)
[2021-12-10] MEDS: hydrALAZINE HCL 25 MG TAB PO SCH (08:32)
[2021-12-10] MEDS: HEPARIN SODIUM,PORCINE/PF 5,000 UNIT/0.5 ML SYRINGE SQ SCH (08:32)
[2021-12-10] MEDS: amLODIPine 5 MG TAB PO SCH (08:32)
[2021-12-10] MEDS: SPIRONOLACTONE 25 MG TAB PO SCH (08:32)
[2021-12-10] MEDS: CHLORTHALIDONE 25 MG TAB PO SCH (08:32)
[2021-12-10] MEDS: lisinopriL 20 MG TAB PO SCH (08:32)
[2021-12-10] MEDS: FAMOTIDINE 20 MG TAB PO SCH (08:32)
[2021-12-10 10:16] VITALS: BP 140/91
== END 2021-12-10 10:55 | disposition home or self-care (01) | DRG 305 ==
LOC: EC 16:42 → 3SCARD 23:00 → 2SICU 12-06 12:20 → 3SCARD 12-08 12:58
PROVIDERS: ADMIT Hospitalist; ATTEND Hospitalist
DX: I16.1 Hypertensive emergency (principal); I50.1 Left ventricular failure, unspecified; Z68.42 Body mass index [BMI] 45.0-49.9, adult; E66.01 Morbid (severe) obesity due to excess calories; I13.0 Hypertensive heart and chronic kidney disease with heart failure and stage 1 through stage 4 chronic kidney disease, or unspecified chronic kidney disease; N18.2 Chronic kidney disease, stage 2 (mild); Z51.5 Encounter for palliative care; I08.1 Rheumatic disorders of both mitral and tricuspid valves; D72.829 Elevated white blood cell count, unspecified; F43.9 Reaction to severe stress, unspecified; Z91.19 Patient's noncompliance with other medical treatment and regimen; Z98.891 History of uterine scar from previous surgery; Z87.42 Personal history of other diseases of the female genital tract; Z98.890 Other specified postprocedural states; Z71.3 Dietary counseling and surveillance; Z82.49 Family history of ischemic heart disease and other diseases of the circulatory system
CPT/HCPCS: 36415; 70450; 71046; 80048; 80053; 81003; 82024; 82533; 83036; 83735; 83880; 84100; 84145; 84443; 84484; 84703; 85025; 85610; 85730; 86140; 93005; 93306; 96361; 96374; 96375; 96376; 99285

== ENCOUNTER → 2022-01-31 | Outpatient (CLI) | payer OTHER ==
[2022-01-31 18:16] LABS: African American GFR (CKD) 60.4 (60.0-200.0); Anion Gap 12.4 mmol/L (10.00-18.00); BUN/Creat Ratio 20.16 Ratio (12.00-20.00); Calcium 9.4 mg/dL (8.7-10.3); Carbon Dioxide 23.6 mmol/L (20.0-27.5); Non-African American GFR(CKD) 52.1 (60.0-200.0); Potassium 4.6 mmol/L (3.5-5.5)
== END | disposition home or self-care (01) ==
LOC: LABWHC1 10:40
PROVIDERS: ATTEND Internal Medicine Interventional Cardiology
DX: N18.9 Chronic kidney disease, unspecified (principal)
CPT/HCPCS: 36415; 80048

== ENCOUNTER → 2022-02-23 | Outpatient (CLI) | payer OTHER ==
[2022-02-23 22:48] LABS: African American GFR (CKD) 59.8 (60.0-200.0); Anion Gap 12.8 mmol/L (10.00-18.00); BUN/Creat Ratio 18.85 Ratio (12.00-20.00); Blood Urea Nitrogen 24.5 mg/dL (9.0-27.0); Carbon Dioxide 22.2 mmol/L (20.0-27.5); Non-African American GFR(CKD) 51.6 (60.0-200.0)
== END | disposition home or self-care (01) ==
LOC: LABWHC1 16:11
PROVIDERS: ATTEND Internal Medicine Interventional Cardiology
DX: N18.9 Chronic kidney disease, unspecified (principal)
CPT/HCPCS: 36415; 80048

== ENCOUNTER → 2022-06-02 | Outpatient (CLI) | payer OTHER ==
--- NOTE | 2022-06-02 09:36 | MM ---
Reason for Exam: Screening (asymptomatic). Baseline mammogram. Patient History: Menarche at age 12. First Full-Term at age 25. Patient has history of breast feeding. Paternal aunt had breast cancer. Last menstrual period: Risk Values: Areli 5 year model risk: 0.5%. NCI Lifetime model risk: 9.9%. Prior Study Comparison: Patient's first Mammogram. Tissue Density: There are scattered fibroglandular densities. Findings: Analyzed By CAD. . Benign-appearing left axillary lymph nodes. There is no suspicious group of microcalcifications or suspicious mass in either breast. Overall Assessment: Negative, BI-RAD 1 Management: Screening Mammogram of both breasts in 1 year. A clinical breast exam by your physician is recommended on an annual basis and results should be correlated with mammographic findings. Electronically signed and approved by: Clark Xiong M.D.
== END | disposition home or self-care (01) ==
LOC: RADMAMWWP 06:56
PROVIDERS: ATTEND Family Medicine
DX: Z12.31 Encounter for screening mammogram for malignant neoplasm of breast (principal); Z80.3 Family history of malignant neoplasm of breast
CPT/HCPCS: 77067

== ENCOUNTER → 2022-11-25 | Outpatient (CLI) | payer OTHER ==
--- NOTE | 2022-11-25 10:44 | CT ---
EXAMINATION TYPE: CT abdomen pelvis w con CT DLP: 1567 mGycm, Automated exposure control for dose reduction was used. DATE OF EXAM: 11/25/2022 10:26 AM COMPARISON: CT abdomen pelvis most recent from CLINICAL INDICATION:Female, 42 years old with history of R10.9; LLQ pain. Stat hold and call TECHNIQUE: Axial CT of the abdomen and pelvis. Sagittal and coronal reformats were created on a [employer] workstation. Contrast used:100 mL of Isovue 300 with IV Contrast, Oral contrast used: with Oral Contrast FINDINGS: LOWER CHEST: Unremarkable ABDOMEN LIVER: Unremarkable GALLBLADDER AND BILE DUCTS: Gallstones in the gallbladder lumen. PANCREAS: Unremarkable. SPLEEN: Unremarkable. ADRENAL GLANDS: Unremarkable. KIDNEYS AND URETERS: No evidence of hydronephrosis or renal calculus. The ureters are unremarkable. PELVIS BLADDER: Unremarkable REPRODUCTIVE: Enlarged fibroid uterus. ABDOMEN & PELVIS STOMACH AND BOWEL: No evidence of bowel obstruction. 2 metallic densities are seen within the rectum could represent biopsy markers versus foreign bodies.1. PERITONEUM/RETROPERITONEUM: No evidence of pneumoperitoneum or free fluid. VASCULATURE: No evidence of aortic aneurysm. MUSCULOSKELETAL: No acute osseous abnormalities LYMPH NODES: No gross evidence for lymphadenopathy. SOFT TISSUE/ABDOMINAL WALL: Unremarkable IMPRESSION: 1. Mild left collecting system dilation without obstructive calcified stone visualized. This could r epresent recently passed stone. Correlate with urinalysis. No other finding within the abdomen or pel vis to correlate patient's pain. 2. Fibroid uterus.
== END | disposition home or self-care (01) ==
LOC: RADCTMAIN 08:21
PROVIDERS: ATTEND Family Medicine
DX: D25.9 Leiomyoma of uterus, unspecified (principal); N28.89 Other specified disorders of kidney and ureter; R10.32 Left lower quadrant pain
CPT/HCPCS: 82565; 84520; 74177; 36415; Q9967

== ENCOUNTER → 2022-12-16 | Outpatient (CLI) | payer OTHER ==
[2022-12-16 16:46] LABS: ALT 22 U/L (4-34); AST 19 U/L (14-36); African American GFR (CKD) 76 (>60 ml/min/1.73 sqM); Albumin 4.5 g/dL (3.5-5.0); Albumin/Globulin Ratio 1.6; Alkaline Phosphatase 66 U/L (38-126); Anion Gap 8 mmol/L; Blood Urea Nitrogen 18 mg/dL (7-17); Carbon Dioxide 28 mmol/L (22-30); Chloride 102 mmol/L (98-107); Globulin 2.9 g/dL; Glucose 89 mg/dL (74-99); Non-African American GFR(CKD) 66 (>60 ml/min/1.73 sqM); Potassium 4.2 mmol/L (3.5-5.1); Sodium 138 mmol/L (137-145); Total Bilirubin 0.4 mg/dL (0.2-1.3); Total Protein 7.4 g/dL (6.3-8.2)
[2022-12-16 20:03] LABS: Basophils # (A) 0.07 X 10*3/uL (0.00-0.10); Basophils % (A) 0.6 %; Eosinophils # (A) 0.16 X 10*3/uL (0.04-0.35); Eosinophils % (A) 1.3 %; HCT 42.5 % (37.2-46.3); HGB 13.9 g/dL (12.0-15.0); Immature Grans, Automated 0.2 %; Lymphocytes # (A) 3.91 X 10*3/uL (0.90-5.00); Lymphocytes % (A) 31.1 %; MCH 29.8 pg (27.0-32.0); MCHC 32.7 g/dL (32.0-37.0); MCV 91.2 fL (80.0-97.0); Mean Platelet Volume 11.4 fL (9.5-12.2); Monocytes # (A) 0.67 X 10*3/uL (0.20-1.00); Monocytes % (A) 5.3 %; NRBC Per 100 WBC 0 /100 WBCS (0.0-0.0); Neutrophils # (A) 7.74 X 10*3/uL (1.80-7.70); Neutrophils % (A) 61.5 %; Platelet Count 405 X 10*3/uL (140-440); RBC 4.66 X 10*6/uL (4.10-5.20); RDW 12.1 % (11.5-14.5); WBC 12.58 X 10*3/uL (4.50-10.00)
== END | disposition home or self-care (01) ==
LOC: LABWHC1 14:59
PROVIDERS: ATTEND Physician Assistant Medical
DX: R10.2 Pelvic and perineal pain (principal)
CPT/HCPCS: 36415; 80053; 83605; 85025

== ENCOUNTER → 2022-12-29 | Outpatient (CLI) | payer OTHER ==
--- NOTE | 2022-12-29 13:42 | CT ---
EXAMINATION TYPE: CT abdomen pelvis w con DATE OF EXAM: 12/29/2022 COMPARISON: 11/25/2022 HISTORY: Mass in left inguinal area CT DLP: 1895.1 mGycm CONTRAST: CT scan of the abdomen and pelvis is performed with Oral Contrast and with IV Contrast, patient injec iván with 100 mL of Isovue 300. FINDINGS: LUNG BASES-: No visible nodule. No infiltrate. LIVER/GB: No calcified gallstones. No space occupying hepatic lesion. Biliary tree is of normal ca liber. PANCREAS: No inflammation. No distinct mass. SPLEEN: No splenic enlargement. No lesion seen. ADRENALS: No nodule. No thickening. KIDNEYS/BLADDER: Mild left renal atrophic change. No hydronephrosis. No nephrolithiasis. No distinc t renal mass. Urinary bladder grossly unremarkable. BOWEL: Normal appendix. Normal bowel caliber. No inflammation. GENITAL ORGANS: Lobulated appearance of the uterus is felt to reflect underlying myomatous change. T his is unchanged from prior study. No ovarian masses seen. LYMPH NODES: No greater than 1cm abdominal or pelvic lymph nodes are appreciated. AORTA: No significant abnormality. OSSEOUS STRUCTURES: No significant abnormality is seen. OTHER: Stable nodular density anterior to the left rectus abdominis musculature measuring 1.4 cm. No inguinal mass identified. IMPRESSION: 1. Lobulated appearance of the uterus felt to reflect leiomyomatous change. 2. Subcutaneous nodule anterior to the left rectus musculature is unchanged from prior study and is o f uncertain etiology. 3. Mild atrophic change left kidney.
== END | disposition home or self-care (01) ==
LOC: RADCTMAIN 10:47
PROVIDERS: ATTEND Family Medicine
DX: R19.09 Other intra-abdominal and pelvic swelling, mass and lump (principal); R91.1 Solitary pulmonary nodule; N26.1 Atrophy of kidney (terminal)
CPT/HCPCS: 82565; 84520; 74177; 36415; Q9967

== ENCOUNTER 2023-03-26 09:44 | Day surgery (SDC) | payer OTHER ==
[2023-03-19 18:07] VITALS: BMI 37.9
[~2023-03-26 09:44] MED LIST: ACETAMINOPHEN TAB 500 MG TAB PO PRN; HEPARIN SODIUM,PORCINE/PF 5,000 UNIT/0.5 ML SYRINGE SQ PRN
[2023-03-26] MEDS ORDERED: ONDANSETRON 4 MG/2 ML VIAL IVP ONE (10:02)
[2023-03-26] MEDS ORDERED: DEXAMETHASONE SOD PHOSPHATE 4 MG/ML 1 ML VIAL IV ONE (10:02)
[2023-03-26] MEDS ORDERED: HYDROmorphone 0.5 MG/0.5 ML SYRINGE IVP PRN (10:02)
[2023-03-26] MEDS ORDERED: SCOPOLAMINE 1 MG/72 HR PATCH TRANSDERM ONE (10:02)
[2023-03-26] MEDS ORDERED: MIDAZOLAM 2 MG/2 ML VIAL IV PRN (10:02)
[2023-03-26] MEDS ORDERED: LACTATED RINGERS 1,000 ML IV SCH (10:02)
[2023-03-26 10:18] VITALS: RESP 16
[2023-03-26 10:25] LABS: Glucose,Whole Blood 101 mg/dL (70-110)
--- NOTE | 2023-03-26 10:32 | P.GSHP ---
History of Present Illness H&P Date: 03/26/23 Chief Complaint: Abdominal wall mass 42-year-old female here for excision abdominal wall mass. Increasing in size over the last year or so. Fluctuates in size monthly. CAT scan shows 1.4 cm mass left rectus Past Medical History Past Medical History: Diabetes Mellitus, Hyperlipidemia, Hypertension Additional Past Medical History / Comment(s): severely elevated BP and mild heart failure in 2021 History of Any Multi-Drug Resistant Organisms: None Reported Past Surgical History: Section, Orthopedic Surgery, Uterine Ablation Additional Past Surgical History / Comment(s): lymph node removed. right knee surg. Past Anesthesia/Blood Transfusion Reactions: No Reported Reaction Past Psychological History: No Psychological Hx Reported Smoking Status: Never smoker Past Alcohol Use History: None Reported Past Drug Use History: None Reported - Past Family History Father Family Medical History: Hypertension Mother Additional Family Medical History / Comment(s): Heart failure, pacer/defibrillator Medications and Allergies Home Medications Medication Instructions Recorded Confirmed Type Dapagliflozin Propanediol [Farxiga] 10 mg PO DAILY 03/19/23 03/26/23 History Rosuvastatin Calcium 5 mg PO DAILY 03/19/23 03/26/23 History Tirzepatide [Mounjaro] 12.5 mg SQ Q7D 03/19/23 03/26/23 History lisinopriL [Zestril] 20 mg PO DAILY 03/19/23 03/26/23 History Allergies Allergy/AdvReac Type Severity Reaction Status Date / Time No Known Allergies Allergy Verified 03/26/23 10:04 Surgical - Exam Vital Signs Temp Pulse Resp BP Pulse Ox 97.6 F 80 16 128/68 99 03/26/23 10:01 03/26/23 10:01 03/26/23 10:01 03/26/23 10:01 03/26/23 10:01 Physical exam: General: Well-developed, well-nourished HEENT: Normocephalic, sclerae nonicteric Abdomen: Nontender, nondistended 2 cm mass left lower quadrant Extremities: No edema Neuro: Alert and oriented Assessment and Plan (1) Abdominal wall mass Narrative/Plan: 42-year-old female with abdominal wall mass likely representing endometrioma. Will proceed with excision abdominal wall mass. Risk of bleeding, infection, scarring, numbness, hernia, recurrence, pain, numbness. Patient understands and wishes to proceed. Current Visit: Yes Status: Acute Code(s): R22.2 - LOCALIZED SWELLING, MASS AND LUMP, TRUNK SNOMED Code(s): 374464077
[2023-03-26] MEDS ORDERED: MIDAZOLAM 2 MG/2 ML VIAL ONE (10:50)
[2023-03-26] MEDS ORDERED: fentaNYL (PF) 50 MCG/ML 2 ML AMP ONE (10:50)
[2023-03-26] MEDS ORDERED: PROPOFOL 10 MG/ML 20 ML VIAL IV ONE (10:50)
[2023-03-26] MEDS ORDERED: LIDOCAINE 2% INJ 20 MG/ML (2 ML VIAL) ONE (10:50)
[2023-03-26] MEDS ORDERED: BUPIVACAINE (PF) 0.25% 10 ML VIAL SQ ONE (11:05)
[2023-03-26] MEDS ORDERED: ACETAMINOPHEN TAB 325 MG TAB PO PRN (11:46)
[2023-03-26] MEDS ORDERED: NALOXONE 0.4 MG/ML 1 ML VIAL IV PRN (11:46)
[2023-03-26] MEDS ORDERED: traMADol 50 MG TAB PO PRN (11:46)
--- NOTE | 2023-03-26 11:49 | P.OP ---
Date of Procedure: 03/26/23 Procedure(s) Performed: PREOPERATIVE DIAGNOSIS: Abdominal wall mass POSTOPERATIVE DIAGNOSIS: Same PROCEDURE: Excision abdominal wall mass with closure SURGEON: Lisandra EBL: 15 mL ANESTHESIA: Gen. COMPLICATIONS: None OPERATIVE PROCEDURE: Patient placed on the operating table in the supine position for the patient was placed under general anesthesia. The abdomen was prepped and draped sterilely. The left lateral aspect of her Pfannenstiel incision was re-incised and extended laterally. Dissection through the subcutaneous tissues took place using electrocautery. The patient's palpable mass measured about 2.5-3 cm. This was present just anterior to the rectus fascia. There was some scarring there as well. This was circumferentially excised using electrocautery. This appeared consistent with a endometrioma. There was a small defect in the anterior rectus fascia in that location that was closed using a running 0 Vicryl suture. No bleeding was seen. Subcutaneous tissues were irrigated. Subcutaneous tissues then closed using interrupted 2-0 Vicryl sutures. Skin closed with the running 4-0 Monocryl suture. Length of intermediate closure 7 cm. Skin glue and sterile dressings applied. DISPOSITION: Stable to recovery room.
[2023-03-26] MEDS ORDERED: HYDROmorphone 0.5 MG/0.5 ML SYRINGE IVP ONE ×2 (11:58→12:10)
[2023-03-26 12:02] VITALS: TEMP 97
[2023-03-26] MEDS ORDERED: LACTATED RINGERS 1,000 ML IV ONE (12:26)
[2023-03-26 13:43] VITALS: BP 125/77; PULSE 68
== END 2023-03-26 14:06 | disposition home or self-care (01) ==
LOC: OR 09:44
PROVIDERS: ATTEND Surgery
DX: R22.2 Localized swelling, mass and lump, trunk (principal); E78.5 Hyperlipidemia, unspecified; E11.9 Type 2 diabetes mellitus without complications; I11.0 Hypertensive heart disease with heart failure; I50.9 Heart failure, unspecified; Z98.890 Other specified postprocedural states; Z82.49 Family history of ischemic heart disease and other diseases of the circulatory system; Z79.84 Long term (current) use of oral hypoglycemic drugs; Z79.899 Other long term (current) drug therapy
CPT/HCPCS: 22902; 81025; 88305; 88342; J2250; J1100; J0690; J2405; J3010; J2704; J1170; J1644; J2001; J0665

== ENCOUNTER → 2023-05-24 | Outpatient (CLI) | payer OTHER ==
[2023-05-24 16:22] LABS: ALT 13 U/L (8-44); AST 13 U/L (13-35); Albumin 4.4 d/dL (3.8-4.9); Albumin/Globulin Ratio 1.57 Ratio (1.60-3.17); Alkaline Phosphatase 70 U/L (41-126); BUN/Creat Ratio 15.64 Ratio (12.00-20.00); Blood Urea Nitrogen 17.2 mg/dL (9.0-27.0); Calcium 9.3 mg/dL (8.7-10.3); Carbon Dioxide 24.1 mmol/L (21.6-31.8); Chloride 104 mmol/L (96-109); Chol/HDL Ratio 4.65 Ratio; Globulin 2.8 d/dL (1.6-3.3); Glucose 97 mg/dL (70-110); LDL Cholesterol,Calculated 167.6 mg/dL (0.0-131.0); Potassium 4.5 mmol/L (3.5-5.5); Sodium 141 mmol/L (135-145); Total Bilirubin 0.2 mg/dL (0.3-1.2); Total Protein 7.2 d/dL (6.2-8.2)
[2023-05-24 16:52] LABS: Basophils # (A) 0.09 X 10*3/uL (0.00-0.10); Basophils % (A) 0.8 %; Eosinophils # (A) 0.09 X 10*3/uL (0.04-0.35); Eosinophils % (A) 0.8 %; HCT 45.8 % (37.2-46.3); Lymphocytes # (A) 2.71 X 10*3/uL (0.90-5.00); Lymphocytes % (A) 24.1 %; MCHC 32.8 d/dL (32.0-37.0); MCV 91.6 FL (80.0-97.0); Mean Platelet Volume 11.6 FL (9.5-12.2); Monocytes % (A) 4.4 %; NRBC Per 100 WBC 0 X 10*3/uL (0.00-0.01); Neutrophils # (A) 7.84 X 10*3/uL (1.80-7.70); Neutrophils % (A) 69.6 %; Platelet Count 378 X 10*3/uL (140-440); WBC 11.26 X 10*3/uL (4.50-10.00)
== END | disposition home or self-care (01) ==
LOC: LABWHC1 08:18
PROVIDERS: ATTEND Family Medicine
DX: N18.2 Chronic kidney disease, stage 2 (mild) (principal); E78.5 Hyperlipidemia, unspecified; D72.829 Elevated white blood cell count, unspecified
CPT/HCPCS: 36415; 80053; 80061; 83036; 85025

== ENCOUNTER → 2023-06-03 | Outpatient (CLI) | payer OTHER ==
--- NOTE | 2023-06-03 08:28 | MM ---
Reason for Exam: Screening (asymptomatic). Last screening mammogram was performed 12 month(s) ago. Patient History: Menarche at age 12. First Full-Term at age 25. Premenopausal. Patient has history of breast feeding. Paternal aunt had breast cancer, age 45. Risk Values: Areli 5 year model risk: 0.6%. NCI Lifetime model risk: 9.8%. Prior Study Comparison: 06/02/2022 Bilateral MG screening mammo w CAD, [facility]. Tissue Density: There are scattered fibroglandular densities. Findings: Analyzed By CAD. Pattern appears symmetrical and stable. No significant interval change is evident. No suspicious groups of microcalcifications, spiculated or lobular masses, architectural distortion or other secondary signs of malignancy are mammographically apparent. Overall Assessment: Benign, BI-RAD 2 Management: Screening Mammogram of both breasts in 1 year. A negative mammogram report should not preclude additional follow up of suspicious palpable abnormalities. Patient should continue monthly self breast exam. A clinical breast exam by your physician is recommended on an annual basis and results should be correlated with mammographic findings. Electronically signed and approved by: Abiel Gutiérrez D.O. Radiologis
== END | disposition home or self-care (01) ==
LOC: RADMAMWWP 07:04
PROVIDERS: ATTEND Family Medicine
DX: Z12.31 Encounter for screening mammogram for malignant neoplasm of breast (principal); Z80.3 Family history of malignant neoplasm of breast
CPT/HCPCS: 77067

== ENCOUNTER → 2023-11-26 | Outpatient (CLI) | payer OTHER ==
[2023-11-26 10:52] LABS: LDL Cholesterol,Calculated 106.7 mg/dL (0.0-131.0)
== END | disposition home or self-care (01) ==
LOC: LABWHC1 07:29
PROVIDERS: ATTEND Family Medicine
DX: E78.5 Hyperlipidemia, unspecified (principal)
CPT/HCPCS: 36415; 80061

== ENCOUNTER → 2024-03-06 | Outpatient (CLI) | payer OTHER | END | disposition home or self-care (01) | LOC: LABWHC1 07:15 | PROVIDERS: ATTEND Family Medicine | DX: I10 Essential (primary) hypertension (principal); E78.5 Hyperlipidemia, unspecified; L65.9 Nonscarring hair loss, unspecified | CPT/HCPCS: 36415; 80053; 80061; 82550; 82728; 83001; 83002; 83540; 83550; 84439; 84443; 84481; 85025; 85652; 86038; 86431 ==

== ENCOUNTER → 2024-06-13 | Outpatient (CLI) | payer OTHER ==
--- NOTE | 2024-06-17 17:19 | MM ---
Reason for Exam: Screening (asymptomatic). Last screening mammogram was performed 12 month(s) ago. Patient History: Menarche at age 12. First Full-Term at age 25. Premenopausal. Patient has history of breast feeding. Paternal aunt had breast cancer, age 45. Risk Values: Areli 5 year model risk: 0.6%. NCI Lifetime model risk: 9.7%. Prior Study Comparison: 06/02/2022 Bilateral MG screening mammo w CAD, [facility]. 06/03/2023 Bilateral MG screening mammo w CAD, [facility]. Tissue Density: There are scattered areas of fibroglandular density. Findings: Analyzed By CAD. The pattern is symmetrical. No significant interval change is evident. No suspicious groups of microcalcifications, spiculated or lobular masses, architectural distortion or other secondary signs of malignancy are mammographically apparent. Overall Assessment: Benign, BI-RAD 2 Management: Screening Mammogram of both breasts in 1 year. A negative mammogram report should not preclude additional follow up of suspicious palpable abnormalities. Patient should continue monthly self breast exam. A clinical breast exam by your physician is recommended on an annual basis and results should be correlated with mammographic findings. Note on Areli scores and lifetime risk: 1. A Areli score greater than 3% is considered moderate risk. If this is the case, consider specialist referral to assess eligibility for a risk reducing agent. 2. If overall lifetime risk for the development of breast cancer is 20% or higher, the patient may qualify for future screening with alternating mammogram and breast MRI. [facility], , 06/17/2024 5:16 PM. Electronically signed and approved by: Abiel Gutiérrez D.O. Radiologis
== END | disposition home or self-care (01) ==
LOC: RADMAMWWP 06:49
PROVIDERS: ATTEND Family Medicine
DX: Z12.31 Encounter for screening mammogram for malignant neoplasm of breast (principal); R92.323 Mammographic fibroglandular density, bilateral breasts; Z80.3 Family history of malignant neoplasm of breast
CPT/HCPCS: 77067